=== PATIENT | male | born 1965 | race Caucasian/White ===

== ENCOUNTER 2018-06-26 21:53 | Emergency (ER) | payer OTHER, SELFPAY ==
[2018-06-26 22:03] VITALS: BP 142/81; PULSE 69; RESP 18; TEMP 36.1; O2SAT 98; BMI 38.4
--- NOTE | 2018-06-26 22:16 | PC.NURSE ---
Went back into pt's room after he changed into hospital gown. Pt stated that he is in fact having pain on right side of his chest. Called RT for EKG, Dr Clayton notified, primary RN Melissa made aware as well.
--- NOTE | 2018-06-26 22:30 | DI.RAD.S_ITS ---
PROCEDURE: XR CHEST 1V INDICATIONS: chest pain TECHNIQUE: One view of the chest was acquired. COMPARISON: [facility], CT, ABDOMEN/PELVIS WITH CONTRAST, 11/05/2017, 23:05. [facility], CT, CT ANGIO CHEST PE PROTOCOL, 06/27/2018, 0:43. FINDINGS: Surgical changes and devices: None. Lungs and pleura: On this semiupright portable chest examination, no large pneumothorax or large pleural effusions are seen. No focal infiltrates are seen. Mild, streaky opacities are seen at the lung bases. Mediastinum: Mediastinal contours appear normal. Heart size is normal. Bones and chest wall: No suspicious bony lesions. Overlying soft tissues appear unremarkable. IMPRESSION: Likely atelectasis is seen at the lung bases. Dictated by: Rohit Fletcher M.D. on 06/27/2018 at 10:40 Approved by: Rohit Fletcher M.D. on 06/27/2018 at 10:41
--- NOTE | 2018-06-26 22:43 | DI.US.S_ITS ---
PROCEDURE: US PERIPH VENOUS LOW EXTREM RT INDICATIONS: hx of DVT off xarelto 2 weeks TECHNIQUE: Real-time imaging, as well as color and pulse Doppler interrogation, were performed of the lower extremity deep veins from the inguinal ligament to the popliteal fossa. COMPARISON: [facility], US, PVE UNILATERAL LEFT, 05/30/2012, 20:03. [facility], CT, CT ANGIO CHEST PE PROTOCOL, 06/27/2018, 0:43. [facility], CR, XR CHEST 1V, 06/26/2018, 22:39. FINDINGS: The deep veins are normally compressible, and free of intraluminal thrombus. Color and pulse Doppler demonstrate normal phasic intraluminal flow. There is normal augmentation response to distal compression maneuver. IMPRESSION: Negative for deep venous thrombosis. Note: No significant discrepancy from the preliminary report. Note: Concordant preliminary findings given by the aircraft engine specialist upon the completion of the examination to Dr. Clayton at 2330 hrs. on 06/26/18. Dictated by: Rohit Fletcher M.D. on 06/27/2018 at 9:41 Approved by: Rohit Fletcher M.D. on 06/27/2018 at 9:42
[2018-06-26 22:44] LABS: Add Manual Diff / Slide Review NO; Basophils Percent Auto 0.8 % (0-2); Eosinophils Percent Auto 6.9 % (2-4); Hematocrit 42.7 % (41-53); Hemoglobin 14.6 g/dL (13.5-17.5); Lymphocytes Percent Auto 23.8 % (25-40); Mean Corpuscular HGB Conc 34.3 % (30-36); Mean Corpuscular Hemoglobin 32.6 PG (26-34); Monocytes Percent Auto 12.6 % (3-14); Neutrophils Absolute Auto 4500 /uL (3000-5900); Neutrophils Percent Auto 55.9 % (50-75); Platelet Count 262 X10^3/uL (150-400); Red Blood Cell Count 4.49 X10^6/uL (4.5-5.9); Red Cell Distribution Width 13.4 % (11.6-14.8)
[2018-06-26 22:46] LABS: Prothrombin Time 11.1 SECONDS (10.1-12.7)
[2018-06-26 22:49] LABS: PTT Partial Thromboplastin Tim 26 SECONDS (26.4-36.2)
[2018-06-26 22:50] LABS: Alanine Aminotransferase 36 IU/L (21-72); Albumin 4.1 g/dL (3.5-5.0); Albumin Globulin Ratio 1.4 (1.0-2.8); Alkaline Phosphatase 73 U/L (38-126); Aspartate Aminotransferase 28 IU/L (17-59); BUN Creatinine Ratio 11.1 (6-22); Bilirubin Total 0.4 mg/dL (0.2-1.3); Blood Urea Nitrogen 10 mg/dL (9-20); Calcium 8.8 mg/dL (8.4-10.2); Carbon Dioxide 27 mmol/L (22-32); Chloride 106 mmol/L (98-107); Creatine Kinase 121 U/L (55-170); Estimated Glomerular Filt Rate > 60.0 mL/min (>60); Globulin 2.9 g/dL (1.7-4.1); Glucose 112 mg/dL (70-100); HEMOLYSIS < 15 (0-50); Lipase 51 U/L (23-300); Sodium 144 mmol/L (137-145)
[2018-06-26 22:56] LABS: D Dimer 2063 ng/mL (<230)
[2018-06-26 23:06] LABS: CKMB % Relative Index 0.6 % (1.5-5.0); Creatine Kinase MB 0.76 ng/mL (<2.37)
[2018-06-26 23:07] LABS: Troponin I < 0.012 ng/mL (0.01-0.034)
[2018-06-26 23:11] LABS: B Type Natriuretic Peptide < 100.0 (<100)
--- NOTE | 2018-06-26 23:40 | PC.NURSE ---
Patient resting quietly. No further needs at this time. [place] provided to family member.
--- NOTE | 2018-06-26 23:42 | DI.CT.S_ITS ---
PROCEDURE: CT ANGIO CHEST PE PROTOCOL INDICATIONS: shortness of breath, history of PE, off xarelto 2 weeks TECHNIQUE: After the administration of intravenous contrast, 2 mm thick sections acquired from the pulmonary apices to the posterior costophrenic angles. 3-dimensional maximum intensity projection (MIP) coronal and sagittal reformats were then acquired through the thorax. For radiation dose reduction, the following was used: automated exposure control, adjustment of mA and/or kV according to patient size. COMPARISON: [facility], CT, ABDOMEN/PELVIS WITH CONTRAST, 11/05/2017, 23:05. [facility], CR, XR CHEST 1V, 06/26/2018, 22:39. [facility], US, US PERIPH VENOUS LOW EXTREM RT, 06/26/2018, 23:30. FINDINGS: Image quality: Excellent. Pulmonary arteries: There is a small amount of right lower lobe pulmonary embolism seen. A small amount of left lower lobe pulmonary embolism can also be seen, involving the subsegmental branches on the left. Lungs and pleura: Mild dependent atelectasis is seen. No pleural effusions or pneumothorax. Central and peripheral airways are patent. Mediastinum: Heart size is mildly enlarged, without pericardial effusion. No mediastinal or hilar adenopathy. Thoracic aorta is normal in caliber and enhancement. Esophagus is normal in caliber. There is a small hiatal hernia. Bones and chest wall: No suspicious bony lesions. Ribs and thoracic spine appear intact throughout. Thyroid gland demonstrates no significant CT abnormality. No axillary or supraclavicular adenopathy. Abdomen: Postoperative clips are seen within the region of the left adrenal gland. Visualized upper abdominal solid organs appear normal in the early arterial phase of enhancement. IMPRESSION: Bilateral lower lobe pulmonary emboli, with a mild clot burden. Mild cardiomegaly. Incidental note is made of: Small hiatal hernia Prior left adrenal region surgery Mild dependent atelectasis Note: No significant discrepancy from the preliminary report. Dictated by: Rohit Fletcher M.D. on 06/27/2018 at 9:43 Approved by: Rohit Fletcher M.D. on 06/27/2018 at 9:46
--- NOTE | 2018-06-26 23:49 | ED.EXTPRO ---
HPI - Extremity Problem General Chief complaint: Extremity Problem,Nontraumatic Stated complaint: RIGHT CALF PAIN Time Seen by Provider: 06/26/18 22:11 Source: patient Mode of arrival: ambulatory Limitations: no limitations History of Present Illness HPI Narrative: The patient is a 52-year-old male who presents with right calf pain ongoing for the last 4-5 days. He has a history of PE and was on Xarelto for a year. He has been off of it for 2 weeks so they could help identify the cause. He now is experiencing some right-sided chest pain which has been ongoing for about 3 days as well denies any heart palpitations dizziness or lightheadedness. He has no significant shortness of breath fever or cough. He said [place] CT [place]. Related Data Home Medications Medication Instructions Recorded Confirmed acetaminophen [Acephen] #0 11/05/17 Previous Rx's Medication Instructions Recorded hydrocodone-acetaminophen [Rye] 1 tab PO Q6HP PRN #10 tab 11/06/17 rivaroxaban [Xarelto] 15 mg PO BID #42 tab 06/27/18 tramadol 50 mg PO Q6H PRN #14 tab 06/27/18 Allergies Allergy/AdvReac Type Severity Reaction Status Date / Time No Known Drug Allergies Allergy Verified 06/26/18 22:42 Review of Systems Review of Systems All systems reviewed & are unremarkable except as noted in HPI and below Constitutional Denies chills, Denies fever(s), Denies lethargy and Denies weakness Cardiovascular Reports as per HPI and Denies dyspnea on exertion Respiratory Reports as per HPI, Denies cough, Denies dyspnea on exertion and Denies wheezing Gastrointestinal Gastrointestinal: Denies abdominal pain, Denies change in bowel habits, Denies diarrhea, Denies nausea and Denies vomiting Genitourinary Denies hematuria, Denies flank pain, Denies urinary incontinence and Denies urinary urgency Musculoskeletal Denies back pain, Denies muscle weakness, Denies numbness and Denies tingling Integumentary/Breasts Denies pruritus, Denies erythema, Denies rash and Denies wounds Neurologic Denies numbness, Denies tingling and Denies weakness Allergic/Immunologic Denies wheezing PFSH Medical History Pulmonary embolism (Acute) Exam Initial Vital Signs Initial Vital Signs: Vital Signs Temperature 97.0 F L 06/26/18 22:03 Pulse Rate 69 06/26/18 22:03 Respiratory Rate 18 06/26/18 22:03 Blood Pressure 142/81 H 06/26/18 22:03 Pulse Oximetry 98 06/26/18 22:03 GENERAL: Overweight male awake alert no acute distress HEENT: Head atraumatic,EOMI, pupils reactive, face symmetric, CARDIOVASCULAR: Regular rate and rhythm without murmurs, rubs or gallops. RESPIRATORY: Breath sounds equal bilaterally, no wheezes rales or rhonchi. ABDOMEN: Soft, nontender. Normoactive bowel sounds all 4 quadrants. No guarding or rebound.s EXTREMITIES: Normal range of motion, no clubbing or edema. Neurovascularly intact Right calf tenderness no but no significant swelling is no erythema. His NEUROLOGICAL: Alert and oriented x4.Normal gait and speech. Cranial nerves II through XII grossly intact. SKIN: Warm, dry, no laceration, no petechiae, no rashes or lesions. Course Orders Ordered: ED Orders 06/26/18 22:30 XR chest 1V Stat B Type Natriuretic Peptide Stat Complete Blood Count AUTO DIFF Stat Comprehensive Metabolic Panel Stat D Dimer Stat Lipase Stat Partial Thromboplastin Time Stat Prothrombin Time INR Stat Troponin & CK Cardiac Panel Stat 06/26/18 22:43 US periph venous low extrem rt Stat 06/26/18 23:42 CT angio chest PE protocol Stat Discontinued Medications Rivaroxaban (Xarelto) 15 mg PO NOW ONE Stop: 06/27/18 02:52 Last Admin: 06/27/18 03:10 Dose: 15 mg Tramadol HCl (Ultram 50mg Prepack) 1 bottle MISC SEEINSTR ONE Stop: 06/27/18 02:52 Last Admin: 06/27/18 03:10 Dose: 1 bottle Vital Signs - 8 hr 06/27/18 00:15 06/27/18 02:11 06/27/18 03:20 Temperature 98.2 F Pulse Rate 59 L 57 L 60 Respiratory Rate 12 12 19 Blood Pressure 106/76 Blood Pressure [Left Arm] 121/68 Blood Pressure [Right Arm] 114/54 L Pulse Oximetry 98 95 97 MDM - Extremity (Nontraumatic) Lab Data Result diagrams: 06/26/18 22:30 06/26/18 22:30 Lab Results 06/26/18 06/26/18 06/26/18 Range/Units 22:30 22:30 22:30 WBC 8.0 (4.5-11.0) X10^3/uL RBC 4.49 L (4.5-5.9) X10^6/uL Hgb 14.6 (13.5-17.5) g/dL Hct 42.7 (41-53) % MCV 95.0 (80-100) fL MCH 32.6 (26-34) PG MCHC 34.3 (30-36) % RDW 13.4 (11.6-14.8) % Plt Count 262 (150-400) X10^3/uL Neut % (Auto) 55.9 (50-75) % Lymph % (Auto) 23.8 L (25-40) % [place] % (Auto) 12.6 (3-14) % Eos % (Auto) 6.9 H (2-4) % Baso % (Auto) 0.8 (0-2) % Neut # (Auto) 4500 (2419-8906) /uL PT 11.1 (10.1-12.7) SECONDS INR 1.0 (0.9-1.3) APTT 26 L (26.4-36.2) SECONDS D-Dimer 2063 H (<230) ng/mL Sodium 144 (137-145) mmol/L Potassium 4.0 (3.4-5.1) mmol/L Chloride 106 (98-107) mmol/L Carbon Dioxide 27 (22-32) mmol/L BUN 10 (9-20) mg/dL Creatinine 0.90 (0.66-1.25) mg/dL Estimated GFR > 60.0 (>60) mL/min BUN/Creatinine Ratio 11.1 (6-22) Glucose 112 H (70-100) mg/dL Calcium 8.8 (8.4-10.2) mg/dL Total Bilirubin 0.4 (0.2-1.3) mg/dL AST 28 (17-59) IU/L ALT 36 (21-72) IU/L Alkaline Phosphatase 73 (38-126) U/L Total Creatine Kinase 121 (55-170) U/L CK-MB (CK-2) 0.76 (<2.37) ng/mL CK-MB (CK-2) Rel Index 0.6 L (1.5-5.0) % Troponin I < 0.012 (0.01-0.034) ng/mL B-Natriuretic Peptide < 100.0 (<100) Total Protein 7.0 (6.3-8.2) g/dL Albumin 4.1 (3.5-5.0) g/dL Globulin 2.9 (1.7-4.1) g/dL Albumin/Globulin Ratio 1.4 (1.0-2.8) Lipase 51 (23-300) U/L Imaging Data Venous US: Radiologist's impression: 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 No central pulmonary embolus is identified. No saddle embolus. There are luminal filling defects in peripheral branches of the medial left low pulmonary artery axial images [id number]. Conclusion I would estimate clot burden to be mild. ECG Data Attestation EKG: I personally reviewed and interpreted this ECG as follows: Prior ECG tracings: not available for review Interpretation: Normal sinus rhythm rate 64 no Q-waves no ST changes no T-wave inversion FL interval 187, QRS 96, QTC 390 MDM Narrative Medical decision making narrative: Ultrasound negative for blood clot however D-dimer is extremely elevated and he is having right-sided chest discomfort. Will get CT for PE. CT confirms bilateral pulmonary emboli with mild clot burden. PESI Score=62 Patient is not hypoxic hypotensive or tachycardic. He likely has an underlying clotting disorder. He has a relative 0 at home insurance has covered it previously. His we discussed admission versus going home. This is likely been ongoing for at least 3-5 days. No evidence of right heart failure or ventricular strain. Discussed at length admission versus discharge. This does seem to be mild clot burden is deemed mild per Radiology. He does have follow-up with his primary physicians on July 06 however I strongly recommended he get in much sooner than that. Discussed risk and benefits and options in anticoagulation including Coumadin Lovenox Xarelto and others.. At this time he would like to stick with Xarelto. Aware that there is no reversal. Also made aware that pulmonary embolisms can lead to though his dose not show signs or symptoms of that. I suspect that this pulmonary embolism has been there for at least a couple of days and is stable. Patient previously had pulmonary embolism treated with Xarelto which was covered by insurance. Strongly encouraged that if any symptoms are worsening return to the emergency department immediately I discussed all findings with the patient and spouse, Education has been performed regarding treatment plan, diagnosis, warning signs and symptoms and all concerns have been addressed. Verbally agree with and understood all of the above. Discharge Plan Departure Patient Disposition: Home Clinical Impression: Acute pulmonary embolism Discharge Date/Time: 06/27/18 03:20 Interventions: ED Discharge Assessment Last Done: 06/27/18 03:20 Instructions: Pulmonary Embolism Activity Restrictions/Additional Instructions: you must call your primary care physician Friday to schedule appointment as soon as possible -will likely be on Xarelto for the rest of your life -you have increased risk of bleeding while taking this medication, there is no reversal for it -Xarelto 15 mg twice a day for 21 days then 20 mg is once a day-please see her primary care about this -return to the emergency department as soon as possible if you should have any worsening chest pain, shortness of breath, dizziness lightheadedness or any other concerning symptoms. -tramadol 1-2 tablets every 6 hr if needed for severe pain Prescriptions: New rivaroxaban [Xarelto] 15 mg tablet 15 mg PO BID Qty: 42 RF: 0 tramadol 50 mg tablet 50 mg PO Q6H PRN (Reason: pain) Qty: 14 RF: 0 No Action acetaminophen [Acephen] 325 MG suppository Qty: 0 RF: 0 hydrocodone-acetaminophen [Rye] 5 MG/325 MG tablet 1 tab PO Q6HP PRNQty: 10 RF: 0 Referrals: [facility] [Provider Group] Provider,Conversion [Non-Staff] -
--- NOTE | 2018-06-26 23:52 | ED_ITS ---
HPI - Extremity Problem General Chief complaint: Extremity Problem,Nontraumatic Stated complaint: RIGHT CALF PAIN Time Seen by Provider: 06/26/18 22:11 Source: patient Mode of arrival: ambulatory Limitations: no limitations History of Present Illness HPI Narrative: The patient is a 52-year-old male who presents with right calf pain ongoing for the last 4-5 days. He has a history of PE and was on Xarelto for a year. He has been off of it for 2 weeks so they could help identify the cause. He now is experiencing some right-sided chest pain which has been ongoing for about 3 days as well denies any heart palpitations dizziness or lightheadedness. He has no significant shortness of breath fever or cough. He said he [place] the CT [place] said [place]. Related Data Home Medications Medication Instructions Recorded Confirmed acetaminophen [Acephen] #0 11/05/17 Previous Rx's Medication Instructions Recorded hydrocodone-acetaminophen [Mulberry] 1 tab PO Q6HP PRN #10 tab 11/06/17 rivaroxaban [Xarelto] 15 mg PO BID #42 tab 06/27/18 tramadol 50 mg PO Q6H PRN #14 tab 06/27/18 Allergies Allergy/AdvReac Type Severity Reaction Status Date / Time No Known Drug Allergies Allergy Verified 06/26/18 22:42 Review of Systems Review of Systems All systems reviewed & are unremarkable except as noted in HPI and below Constitutional Denies chills, Denies fever(s), Denies lethargy and Denies weakness Cardiovascular Reports as per HPI and Denies dyspnea on exertion Respiratory Reports as per HPI, Denies cough, Denies dyspnea on exertion and Denies wheezing Gastrointestinal Gastrointestinal: Denies abdominal pain, Denies change in bowel habits, Denies diarrhea, Denies nausea and Denies vomiting Genitourinary Denies hematuria, Denies flank pain, Denies urinary incontinence and Denies urinary urgency Musculoskeletal Denies back pain, Denies muscle weakness, Denies numbness and Denies tingling Integumentary/Breasts Denies pruritus, Denies erythema, Denies rash and Denies wounds Neurologic Denies numbness, Denies tingling and Denies weakness Allergic/Immunologic Denies wheezing PFSH Medical History Pulmonary embolism (Acute) Exam Initial Vital Signs Initial Vital Signs: Vital Signs Temperature 97.0 F L 06/26/18 22:03 Pulse Rate 69 06/26/18 22:03 Respiratory Rate 18 06/26/18 22:03 Blood Pressure 142/81 H 06/26/18 22:03 Pulse Oximetry 98 06/26/18 22:03 GENERAL: Overweight male awake alert no acute distress HEENT: Head atraumatic,EOMI, pupils reactive, face symmetric, CARDIOVASCULAR: Regular rate and rhythm without murmurs, rubs or gallops. RESPIRATORY: Breath sounds equal bilaterally, no wheezes rales or rhonchi. ABDOMEN: Soft, nontender. Normoactive bowel sounds all 4 quadrants. No guarding or rebound.s EXTREMITIES: Normal range of motion, no clubbing or edema. Neurovascularly intact Right calf tenderness no but no significant swelling is no erythema. His NEUROLOGICAL: Alert and oriented x4.Normal gait and speech. Cranial nerves II through XII grossly intact. SKIN: Warm, dry, no laceration, no petechiae, no rashes or lesions. Course Orders Ordered: ED Orders 06/26/18 22:30 XR chest 1V Stat B Type Natriuretic Peptide Stat Complete Blood Count AUTO DIFF Stat Comprehensive Metabolic Panel Stat D Dimer Stat Lipase Stat Partial Thromboplastin Time Stat Prothrombin Time INR Stat Troponin & CK Cardiac Panel Stat 06/26/18 22:43 US periph venous low extrem rt Stat 06/26/18 23:42 CT angio chest PE protocol Stat Discontinued Medications Rivaroxaban (Xarelto) 15 mg PO NOW ONE Stop: 06/27/18 02:52 Last Admin: 06/27/18 03:10 Dose: 15 mg Tramadol HCl (Ultram 50mg Prepack) 1 bottle MISC SEEINSTR ONE Stop: 06/27/18 02:52 Last Admin: 06/27/18 03:10 Dose: 1 bottle Vital Signs - 8 hr 06/27/18 00:15 06/27/18 02:11 06/27/18 03:20 Temperature 98.2 F Pulse Rate 59 L 57 L 60 Respiratory Rate 12 12 19 Blood Pressure 106/76 Blood Pressure [Left Arm] 121/68 Blood Pressure [Right Arm] 114/54 L Pulse Oximetry 98 95 97 MDM - Extremity (Nontraumatic) Lab Data Result diagrams: 06/26/18 22:30 06/26/18 22:30 Lab Results 06/26/18 06/26/18 06/26/18 Range/Units 22:30 22:30 22:30 WBC 8.0 (4.5-11.0) X10^3/uL RBC 4.49 L (4.5-5.9) X10^6/uL Hgb 14.6 (13.5-17.5) g/dL Hct 42.7 (41-53) % MCV 95.0 (80-100) fL MCH 32.6 (26-34) PG MCHC 34.3 (30-36) % RDW 13.4 (11.6-14.8) % Plt Count 262 (150-400) X10^3/uL Neut % (Auto) 55.9 (50-75) % Lymph % (Auto) 23.8 L (25-40) % [place] % (Auto) 12.6 (3-14) % Eos % (Auto) 6.9 H (2-4) % Baso % (Auto) 0.8 (0-2) % Neut # (Auto) 4500 (1473-3538) /uL PT 11.1 (10.1-12.7) SECONDS INR 1.0 (0.9-1.3) APTT 26 L (26.4-36.2) SECONDS D-Dimer 2063 H (<230) ng/mL Sodium 144 (137-145) mmol/L Potassium 4.0 (3.4-5.1) mmol/L Chloride 106 (98-107) mmol/L Carbon Dioxide 27 (22-32) mmol/L BUN 10 (9-20) mg/dL Creatinine 0.90 (0.66-1.25) mg/dL Estimated GFR > 60.0 (>60) mL/min BUN/Creatinine Ratio 11.1 (6-22) Glucose 112 H (70-100) mg/dL Calcium 8.8 (8.4-10.2) mg/dL Total Bilirubin 0.4 (0.2-1.3) mg/dL AST 28 (17-59) IU/L ALT 36 (21-72) IU/L Alkaline Phosphatase 73 (38-126) U/L Total Creatine Kinase 121 (55-170) U/L CK-MB (CK-2) 0.76 (<2.37) ng/mL CK-MB (CK-2) Rel Index 0.6 L (1.5-5.0) % Troponin I < 0.012 (0.01-0.034) ng/mL B-Natriuretic Peptide < 100.0 (<100) Total Protein 7.0 (6.3-8.2) g/dL Albumin 4.1 (3.5-5.0) g/dL Globulin 2.9 (1.7-4.1) g/dL Albumin/Globulin Ratio 1.4 (1.0-2.8) Lipase 51 (23-300) U/L Imaging Data Venous US: 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 No central pulmonary embolus is identified. No saddle embolus. There are luminal filling defects in peripheral branches of the medial left low pulmonary artery axial images [id number]. Conclusion I would estimate clot burden to be mild. ECG Data Attestation EKG: I personally reviewed and interpreted this ECG as follows: Prior ECG tracings: not available for review Interpretation: Normal sinus rhythm rate 64 no Q-waves no ST changes no T-wave inversion AR interval 187, QRS 96, QTC 390 MDM Narrative Medical decision making narrative: Ultrasound negative for blood clot however D- dimer is extremely elevated and he is having right-sided chest discomfort. Will get CT for PE. CT confirms bilateral pulmonary emboli with mild clot burden. PESI Score=62 Patient is not hypoxic hypotensive or tachycardic. He likely has an underlying clotting disorder. He has a relative 0 at home insurance has covered it previously. His we discussed admission versus going home. This is likely been ongoing for at least 3-5 days. No evidence of right heart failure or ventricular strain. Discussed at length admission versus discharge. This does seem to be mild clot burden is deemed mild per Radiology. He does have follow-up with his primary physicians on July 06 however I strongly recommended he get in much sooner than that. Discussed risk and benefits and options in anticoagulation including Coumadin Lovenox Xarelto and others.. At this time he would like to stick with Xarelto. Aware that there is no reversal. Also made aware that pulmonary embolisms can lead to though his dose not show signs or symptoms of that. I suspect that this pulmonary embolism has been there for at least a couple of days and is stable. Patient previously had pulmonary embolism treated with Xarelto which was covered by insurance. Strongly encouraged that if any symptoms are worsening return to the emergency department immediately I discussed all findings with the patient and spouse, Education has been performed regarding treatment plan, diagnosis, warning signs and symptoms and all concerns have been addressed. Verbally agree with and understood all of the above. Discharge Plan Departure Patient Disposition: Home Clinical Impression: Acute pulmonary embolism Discharge Date/Time: 06/27/18 03:20 Interventions: ED Discharge Assessment Last Done: 06/27/18 03:20 Instructions: Pulmonary Embolism Activity Restrictions/Additional Instructions: you must call your primary care physician Friday to schedule appointment as soon as possible -will likely be on Xarelto for the rest of your life -you have increased risk of bleeding while taking this medication, there is no reversal for it -Xarelto 15 mg twice a day for 21 days then 20 mg is once a day-please see her primary care about this -return to the emergency department as soon as possible if you should have any worsening chest pain, shortness of breath, dizziness lightheadedness or any other concerning symptoms. -tramadol 1-2 tablets every 6 hr if needed for severe pain Prescriptions: New rivaroxaban [Xarelto] 15 mg tablet 15 mg PO BID Qty: 42 RF: 0 tramadol 50 mg tablet 50 mg PO Q6H PRN (Reason: pain) Qty: 14 RF: 0 No Action acetaminophen [Acephen] 325 MG suppository Qty: 0 RF: 0 hydrocodone-acetaminophen [Mulberry] 5 MG/325 MG tablet 1 tab PO Q6HP PRNQty: 10 RF: 0 Referrals: [facility] [Provider Group] Provider,Conversion [Non-Staff] -
[2018-06-27 00:15] VITALS: BP 114/54; PULSE 59; RESP 12; O2SAT 98
[2018-06-27 02:11] VITALS: BP 121/68; PULSE 57; RESP 12; O2SAT 95
[2018-06-27] MEDS: RIVAROXABAN 10 MG TABLET 15 MG PO (03:10)
[2018-06-27] MEDS: TRAMADOL 50 MG PREPACK 1 BOTTLE MISC (03:10)
[2018-06-27 03:20] VITALS: BP 106/76; PULSE 60; RESP 19; TEMP 36.8; O2SAT 97
== END 2018-06-27 03:20 | disposition home or self-care (01) ==
PROVIDERS: Emergency Provider Emergency Medicine
DX: I26.99 Other pulmonary embolism without acute cor pulmonale (principal)
CPT/HCPCS: 36415; 36591; 71045; 71275; 80053; 82550; 82553; 83690; 83880; 84484; 85025; 85379; 85610; 85730; 93005; 93971; 99283; 99285; Q9967

== ENCOUNTER 2020-01-03 09:36 | Emergency (ER) | payer OTHER, SELFPAY ==
[2020-01-03 09:42] VITALS: BP 156/79; PULSE 65; RESP 12; TEMP 36.8; O2SAT 96
--- NOTE | 2020-01-03 09:48 | ED_ITS ---
HPI - Extremity Problem General Chief complaint: Extremity Problem,Nontraumatic Stated complaint: Infection on left elkins Time Seen by Provider: 01/03/20 09:42 Source: patient Mode of arrival: Ambulatory Limitations: no limitations History of Present Illness HPI Narrative: 54-year-old gentleman with a history of prior DVT, PE and lifelong Xarelto use presents with increasing redness pain and swelling to the left lower extremity. He had an acute injury on December 21, hit his elkins on the edge of the truck. He did not think much about it but did continued to hurt. There is a 2 cm abrasion mid elkins. Over the last 48 hours it is hurting worse, increasing erythema and he is noticing pain that radiates from the medial portion of his knee down to the medial portion of his ankle including the posterior calf on the affected side. He states that this does feel different than his DVTs but he is concerned. Related Data Home Medications Medication Instructions Recorded Confirmed acetaminophen [Acephen] #0 11/05/17 Previous Rx's Medication Instructions Recorded hydrocodone-acetaminophen [[place]] 1 tab PO Q6HP PRN #10 tab 11/06/17 rivaroxaban [Xarelto] 15 mg PO BID #42 tab 06/27/18 tramadol 50 mg PO Q6H PRN #14 tab 06/27/18 cephalexin [Keflex] 500 mg PO Q8H #21 cap 01/03/20 Allergies Allergy/AdvReac Type Severity Reaction Status Date / Time No Known Drug Allergies Allergy Verified 01/03/20 09:46 Review of Systems Review of Systems Narrative: Denies ? fever ? cough ? cold ? chills ? chest pain ? dyspnea ? orthopnea ? wheezing ? abdominal pain ? change to bowel or bladder habits ? nausea vomiting ? rashes Patient History Medical History Pulmonary embolism (Acute) Social History Smoking Status: Former smoker Smoking Status: Former smoker alcohol intake frequency: 0-2 drinks per day Substance Use Type: does not use Exam Narrative Exam Narrative: General: Healthy appearing, in no acute distress. Able to give a complete and coherent history. Well-nourished well-developed Respiratory: Lungs are clear to auscultation, no wheezing no rales no rhonchi. Full and symmetrical air movement Cardiac: Regular rate and rhythm no murmurs no bruits Abdomen: Soft nontender good bowel tones, no flank pain Neurologic: Grossly neurologically intact with no obvious asymmetries or abnormalities Psych: Cooperative, appropriate insight and affect Extremities: 2 cm healing abrasion to the mid elkins on the left calf. Left calf is 1+ edematous with no similar edema on the right calf. There is increasing erythema for approximately 3 cm surrounding the abrasion without any abscess. He has no inguinal adenopathy. Initial Vital Signs Initial Vital Signs: Vital Signs Temperature 98.3 F 01/03/20 09:42 Pulse Rate 65 01/03/20 09:42 Respiratory Rate 12 01/03/20 09:42 Blood Pressure 156/79 H 01/03/20 09:42 Pulse Oximetry 96 01/03/20 09:42 Course Orders Ordered: ED Orders 01/03/20 09:51 US periph venous low extrem lt Stat Vital Signs Vital signs: Vital Signs - 8 hr 01/03/20 09:42 Temperature 98.3 F Pulse Rate 65 Respiratory Rate 12 Blood Pressure 156/79 H Pulse Oximetry 96 MDM - Extremity (Nontraumatic) Imaging Data Left lower extremity ultrasound: Radiologist's Impression: Per environmental tech, no evidence of DVT MDM Narrative Medical decision making narrative: Lower extremity wound that has now become infected with developing left lower extremity cellulitis without evidence of DVT. Treat with Keflex. He is safe for home discharge Discharge Plan Departure Patient Disposition: Home Clinical Impression: Cellulitis Qualifiers: Site of cellulitis: extremity Site of cellulitis of extremity: lower extremity Laterality: left Qualified Code(s): L03.116 - Cellulitis of left lower limb Instructions: DI for Cellulitis -- Adult Activity Restrictions/Additional Instructions: Thank you for coming in today I do believe that the abrasion you have on your left elkins is developing into an infection, cellulitis. There is no evidence for a blood clot at this time. Please complete the entire course of Keflex. Please continue your Xarelto as prescribed. You may find a keeping your leg elevated does help with pain as the infection improves. If you note that there is increasing redness, any drainage, streaking up your leg to suggest worsening infection or develop fevers you do need to be re- evaluated. I hope you heal quickly and completely. Prescriptions: New cephalexin [Keflex] 500 mg capsule 500 mg PO Q8H Qty: 21 RF: 0 No Action acetaminophen [Acephen] 325 MG suppository Qty: 0 RF: 0 hydrocodone-acetaminophen [[place]] 5 MG/325 MG tablet 1 tab PO Q6HP PRNQty: 10 RF: 0 rivaroxaban [Xarelto] 15 mg tablet 15 mg PO BID Qty: 42 RF: 0 tramadol 50 mg tablet 50 mg PO Q6H PRN (Reason: pain) Qty: 14 RF: 0
--- NOTE | 2020-01-03 09:51 | DI.US.S_ITS ---
PROCEDURE: US PERIPH VENOUS LOW EXTREM LT INDICATIONS: unilateral edema, h/o DVT/PE TECHNIQUE: Real-time imaging, as well as color and pulse Doppler interrogation, were performed of the lower extremity deep veins from the inguinal ligament to the popliteal fossa. COMPARISON: None. FINDINGS: The common femoral, femoral and popliteal veins are normally compressible, and free of intraluminal thrombus. Color and pulse Doppler demonstrate normal phasic intraluminal flow. There is normal augmentation response to distal compression maneuver. IMPRESSION: Negative for deep venous thrombosis. Dictated by: Rohit Fletcher M.D. on 01/03/2020 at 9:51 Approved by: Rohit Fletcher M.D. on 01/03/2020 at 9:52
== END 2020-01-03 11:00 | disposition home or self-care (01) ==
PROVIDERS: Emergency Provider Emergency Medicine; PCP Family Medicine
DX: L03.116 Cellulitis of left lower limb (principal); Y99.0 Civilian activity done for income or pay
CPT/HCPCS: 93971; 99283

== ENCOUNTER 2024-11-15 10:39 | Emergency (ER) | payer OTHER, SELFPAY ==
[2024-11-15 11:04] VITALS: BP 156/74; PULSE 57; RESP 18; TEMP 37; O2SAT 98; BMI 33.3
--- NOTE | 2024-11-15 11:12 | DI.RAD.S_ITS ---
PROCEDURE: XR RIBS RT MIN 3V W CXR 1V INDICATIONS: fall; injury to right ribs TECHNIQUE: 3 views of the ribs were acquired, along with a single view chest. COMPARISON: None. FINDINGS: Surgical changes and devices: None. Bones and chest wall: No fractures or dislocations. No suspicious bony lesions. Overlying soft tissues appear unremarkable. Lungs and pleura: No pleural effusions or pneumothorax. Lungs appear clear. Mediastinum: Mediastinal contours appear normal. Heart size is normal. IMPRESSION: No visualized acute fracture or dislocation. However, if clinical concern and/or pain persist, short interval imaging followup in 7-10 days is recommended, as occult injury cannot be definitively excluded. Dictated by: Tana Jolley M.D. on 11/15/2024 at 11:48 Approved by: Tana Jolley M.D. on 11/15/2024 at 11:48
[2024-11-15 12:46] VITALS: RESP 20
--- NOTE | 2024-11-15 13:10 | ED.FALL ---
HPI - Fall <Brendan Salinas PA-C - Last Filed: 11/15/24 15:18> General Chief Complaint: Fall Stated Complaint: fell from ladder, rib pain, work injury Time Seen by Provider: 11/15/24 12:13 Source: patient Mode of arrival: Ambulatory History of Present Illness HPI Narrative: 59-year-old male with past medical history diabetes, kidney/adrenal cyst, pulmonary embolism presents to the ED with 3 days of right-sided lower rib pain. 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 Patient also bumped his right elbow, however the elbow soreness seems to have resolved. Patient complains of right-sided rib pain. No pain with inspiration, patient is able to take a full breath without pain. Patient is on Xarelto. Related Data Home Medications Medication Instructions Recorded Confirmed acetaminophen 325 mg rectal ##0 11/05/17 suppository (Acephen) Previous Rx's Medication Instructions Recorded hydrocodone 5 mg-acetaminophen 325 1 tab PO Q6HP PRN #10 tabs 11/06/17 mg tablet ([place]) rivaroxaban 15 mg tablet (Xarelto) 15 mg PO BID #42 tabs 06/27/18 tramadol 50 mg tablet 50 mg PO Q6H PRN pain #14 tabs 06/27/18 cephalexin 500 mg capsule (Keflex) 500 mg PO Q8H #21 caps 01/03/20 Allergies Allergy/AdvReac Type Severity Reaction Status Date / Time No Known Drug Allergies Allergy Verified 01/03/20 09:46 Review of Systems <Brendan Salinas PA-C - Last Filed: 11/15/24 15:18> Constitutional Constitutional: Denies chills, Denies fatigue, Denies fever(s), Denies frequent falls, Denies lethargy and Denies weakness Eyes Eyes: Denies change in vision, Denies eye discharge, Denies irritation and Denies loss of vision ENT Ears, Nose, Mouth, and Throat: Denies change in voice, Denies dizziness, Denies neck pain, Denies sore throat and Denies throat swelling Cardiovascular Cardiovascular: Denies chest pain, Denies irregular heart rhythm, Denies lightheadedness, Denies palpitations, Denies dyspnea, Denies dyspnea on exertion and Denies orthopnea Respiratory Respiratory: Denies cough, Denies dyspnea, Denies dyspnea on exertion and Denies wheezing Gastrointestinal Gastrointestinal: Denies abdominal pain, Denies change in bowel habits, Denies diarrhea, Denies nausea and Denies vomiting Musculoskeletal Musculoskeletal: Denies neck pain and Denies numbness Comments: Right-sided lower rib pain Integumentary/Breasts Skin/Breast: Denies pruritus, Denies erythema, Denies rash and Denies wounds Neurologic Neurologic: Denies behavioral changes, Denies confusion, Denies dizziness, Denies frequent falls, Denies loss of vision, Denies numbness and Denies weakness Psychiatric Psychiatric: Denies anxiety, Denies behavioral changes, Denies confusion, Denies depression, Denies homicidal ideation and Denies suicidal ideation Endocrine Endocrine: Denies fatigue, Denies flushing and Denies palpitations Hematologic/Lymphatic Hematologic/Lymphatic: Denies easy bruising Allergic/Immunologic Allergic/Immunologic: Denies urticaria, Denies throat swelling and Denies wheezing Patient History <Brendan Salinas PA-C - Last Filed: 11/15/24 15:18> Medical History (Updated 11/15/24 @ 15:05 by Brendan Salinas PA-C) Pulmonary embolism Social History Smoking Status: Former smoker Smoking Status: Former smoker alcohol intake frequency: 0-2 drinks per day Exam <Brendan Salinas PA-C - Last Filed: 11/15/24 15:18> Narrative Exam Narrative: Const General:?cooperative, healthy appearing and comfortable [facility] Head:?normal to inspection Ears:?hearing grossly normal bilaterally Nose:?external nose normal Face and sinus:?normal facial exam and sinuses nontender Mouth:?oral mucosae normal Throat:?posterior oropharynx normal Eyes General:?appearance normal, both eyes and all related structures Neck Neck:?normal visual inspection and no lymphadenopathy noted Resp Effort & Inspection:?normal respiratory effort Auscultation:?clear to auscultation bilaterally Cardio Rate:?regular rate Rhythm:?regular rhythm GI/Musculoskeletal Significant tenderness in the right lower ribs, RUQ. Neuro General:?patient alert, patient awake and patient oriented x3 Initial Vital Signs Initial Vital Signs: Vital Signs Temperature 98.6 F 11/15/24 11:04 Pulse Rate 57 L 11/15/24 11:04 Respiratory Rate 18 11/15/24 11:04 Blood Pressure 156/74 H 11/15/24 11:04 Pulse Oximetry 98 11/15/24 11:04 Oxygen Delivery Method Room Air 11/15/24 11:04 <Cuauhtemoc Fong MD - Last Filed: 11/15/24 22:03> Initial Vital Signs Initial Vital Signs: Vital Signs Temperature 98.6 F 11/15/24 11:04 Pulse Rate 57 L 11/15/24 11:04 Respiratory Rate 18 11/15/24 11:04 Blood Pressure 156/74 H 11/15/24 11:04 Pulse Oximetry 98 11/15/24 11:04 Oxygen Delivery Method Room Air 11/15/24 11:04 Course <Brendan Salinas PA-C - Last Filed: 11/15/24 15:18> Orders Ordered: ED Orders 11/15/24 13:16 CT chest abd pel w con Stat 11/15/24 13:25 CBC Auto Diff [Complete Blood Count AUTO DIFF] Stat CMP [Comprehensive Metabolic Panel] Stat Lipase Stat PT [Prothrombin Time INR] Stat PTT Partial Thromboplastin Carlos Stat Vital Signs Vital signs: Vital Signs - 8 hr 11/15/24 15:20 Pulse Rate 54 L Respiratory Rate 16 Blood Pressure 128/77 Pulse Oximetry 97 Oxygen Delivery Method Room Air <Cuauhtemoc Fong MD - Last Filed: 11/15/24 22:03> Orders Ordered: ED Orders 11/15/24 13:16 CT chest abd pel w con Stat 11/15/24 13:25 CBC Auto Diff [Complete Blood Count AUTO DIFF] Stat CMP [Comprehensive Metabolic Panel] Stat Lipase Stat PT [Prothrombin Time INR] Stat PTT Partial Thromboplastin Carlos Stat Vital Signs Vital signs: Vital Signs - 8 hr 11/15/24 15:20 Pulse Rate 54 L Respiratory Rate 16 Blood Pressure 128/77 Pulse Oximetry 97 Oxygen Delivery Method Room Air MDM - Fall <Brendan Salinas PA-C - Last Filed: 11/15/24 15:18> Lab Data 11/15/24 13:25 11/15/24 13:25 Labs: Lab Results 11/15/24 Range/Units 13:25 WBC 6.4 (4.5-11.0) X10^3/uL RBC 4.84 (4.5-5.9) X10^6/uL Hgb 15.7 (13.5-17.5) g/dL Hct 46.5 (41-53) % MCV 96.0 (80-100) fL MCH 32.5 (26-34) PG MCHC 33.8 (30-36) % RDW 12.9 (11.6-14.8) % Plt Count 293 (150-400) X10^3/uL Neut % (Auto) 67.1 (50-75) % Lymph % (Auto) 22.3 L (25-40) % [place] % (Auto) 7.4 (3-14) % Eos % (Auto) 2.7 (2-4) % Baso % (Auto) 0.5 (0-2) % Neut # (Auto) 4300 (2173-7564) /uL Lymph # (Auto) 1400 (7093-0317) /uL [place] # (Auto) 500 (0-900) /uL Eos # (Auto) 200 (0-450) /uL Baso # (Auto) 0 (0-100) /uL PT 11.1 (9.4-12.5) SECONDS INR 1.0 (0.9-1.3) APTT 37 H (25.1-36.5) SECONDS Sodium 135 L (137-145) mmol/L Potassium 4.2 (3.4-5.1) mmol/L Chloride 103 (98-107) mmol/L Carbon Dioxide 24 (22-32) mmol/L BUN 10 (9-20) mg/dL Creatinine 0.75 (0.66-1.25) mg/dL Estimated GFR > 60 (>60) mL/min BUN/Creatinine Ratio 13.3 (6-22) Glucose 301 H (70-100) mg/dL Calcium 9.1 (8.4-10.2) mg/dL Total Bilirubin 0.5 (0.2-1.3) mg/dL AST 32 (17-59) IU/L ALT 35 (<50) IU/L Alkaline Phosphatase 78 (38-126) U/L Total Protein 7.9 (6.3-8.2) g/dL Albumin 4.7 (3.5-5.0) g/dL Globulin 3.2 (1.7-4.1) g/dL Albumin/Globulin Ratio 1.5 (1.0-2.8) Lipase 58 (23-300) U/L MDM Narrative Medical decision making narrative: 59-year-old male with past medical history diabetes, kidney/adrenal cyst, pulmonary embolism presents to the ED with 3 days of right-sided lower rib pain. Concern for rib fracture versus intra-abdominal hemorrhage versus musculoskeletal sprain/strain versus other. Rib x-ray negative. Given that patient is on Xarelto, will obtain labs and CT chest abdomen pelvis. Will reassess. CT chest abdomen pelvis without acute findings might be causing patient's symptoms. Incidental finding of nonobstructive nephrolithiasis. Patient's symptoms likely due to a rib contusion. Glucose elevated to 301, labs otherwise within normal limits. Patient is known diabetic on medications. Recommend good glycemic control. Recommend Tylenol, lidocaine patches. Recommend follow-up with PCP. ED return precautions discussed with patient. Patient verbalized understanding. Medical records reviewed: Yes <Cuauhtemoc Fong MD - Last Filed: 11/15/24 22:03> Lab Data Labs: Lab Results 11/15/24 Range/Units 13:25 WBC 6.4 (4.5-11.0) X10^3/uL RBC 4.84 (4.5-5.9) X10^6/uL Hgb 15.7 (13.5-17.5) g/dL Hct 46.5 (41-53) % MCV 96.0 (80-100) fL MCH 32.5 (26-34) PG MCHC 33.8 (30-36) % RDW 12.9 (11.6-14.8) % Plt Count 293 (150-400) X10^3/uL Neut % (Auto) 67.1 (50-75) % Lymph % (Auto) 22.3 L (25-40) % [place] % (Auto) 7.4 (3-14) % Eos % (Auto) 2.7 (2-4) % Baso % (Auto) 0.5 (0-2) % Neut # (Auto) 4300 (8837-0831) /uL Lymph # (Auto) 1400 (7531-7392) /uL [place] # (Auto) 500 (0-900) /uL Eos # (Auto) 200 (0-450) /uL Baso # (Auto) 0 (0-100) /uL PT 11.1 (9.4-12.5) SECONDS INR 1.0 (0.9-1.3) APTT 37 H (25.1-36.5) SECONDS Sodium 135 L (137-145) mmol/L Potassium 4.2 (3.4-5.1) mmol/L Chloride 103 (98-107) mmol/L Carbon Dioxide 24 (22-32) mmol/L BUN 10 (9-20) mg/dL Creatinine 0.75 (0.66-1.25) mg/dL Estimated GFR > 60 (>60) mL/min BUN/Creatinine Ratio 13.3 (6-22) Glucose 301 H (70-100) mg/dL Calcium 9.1 (8.4-10.2) mg/dL Total Bilirubin 0.5 (0.2-1.3) mg/dL AST 32 (17-59) IU/L ALT 35 (<50) IU/L Alkaline Phosphatase 78 (38-126) U/L Total Protein 7.9 (6.3-8.2) g/dL Albumin 4.7 (3.5-5.0) g/dL Globulin 3.2 (1.7-4.1) g/dL Albumin/Globulin Ratio 1.5 (1.0-2.8) Lipase 58 (23-300) U/L Discharge Plan Departure Patient Disposition: Home Clinical Impression: Rib injury Instructions: DI for Rib Contusion Activity Restrictions/Additional Instructions: You were evaluated in the ED today for right-sided rib pain. Your CT scan shows no acute injuries or rib fractures. It appears that your symptoms are likely due to a rib contusion/bruise. You may continue taking Tylenol, applying lidocaine patches for relief. Your CT scan also showed some kidney stones as an incidental finding, however not responsible for your symptoms today. Please follow-up with your PCP as soon as possible. Return to the ED if you have worsening symptoms, chest pain, shortness of breath Prescriptions: No Action acetaminophen [Acephen] 325 MG suppository Qty: 0 hydrocodone-acetaminophen [[place]] 5 MG/325 MG tablet 1 tab PO Q6HP PRNQty: 10 0RF rivaroxaban [Xarelto] 15 mg tablet 15 mg PO BID Qty: 42 0RF Rx Instructions: for 21 days tramadol 50 mg tablet 50 mg PO Q6H PRN (Reason: pain) Qty: 14 0RF cephalexin [Keflex] 500 mg capsule 500 mg PO Q8H Qty: 21 0RF Referrals: Amos Lunsford [Primary Care Provider] - Stand Alone Forms: Patient Portal/API/Survey ED Sign-out <Cuauhtemoc Fong MD - Last Filed: 11/15/24 22:03> [facility]: I was immediately available in the department for consultation. This documentation has been reviewed and I agree with assessment and plan. Supervised by Cuauhtemoc Fong MD
--- NOTE | 2024-11-15 13:16 | DI.CT.S_ITS ---
PROCEDURE: CT CHEST ABD PEL W CON INDICATIONS: Rib, RUQ injury TECHNIQUE: After the administration of intravenous contrast, 5 mm thick sections acquired from the lung apices to the symphysis. 2.5 mm thick coronal and sagittal reformats were acquired. Additional 7 mm thick coronal maximum intensity projection (MIP) reformats acquired through the lungs. Optional 10-minute delayed imaging may be performed from the kidneys to the bladder. For radiation dose reduction, the following was used: automated exposure control, adjustment of mA and/or kV according to patient size. COMPARISON: [facility], CR, XR RIBS RT MIN 3V W CXR 1V, 11/15/2024, 11:22. [facility], CT, CT ANGIO CHEST PE PROTOCOL, 06/27/2018, 0:43. FINDINGS: Image quality: Diagnostic. CHEST: Lower Neck: No enlarged lymph nodes. Thyroid: No thyroid nodules which require sonographic evaluation. Axillae: No enlarged lymph nodes. Chest Wall: No subcutaneous gas. Lungs and Pleura: No pulmonary contusions or lacerations. No acute airspace opacities. No pneumothorax or hemothorax. Mediastinum: No mediastinal hematomas. Heart size is normal. No pericardial effusion. Thoracic aorta and pulmonary arteries demonstrate normal size and enhancement. No mediastinal or hilar adenopathy. Esophagus is normal in caliber. No hiatal hernia. ABDOMEN: Liver: No lacerations. Steatosis. Gallbladder: No radiopaque gallstones or wall thickening. Biliary ducts: No biliary dilation. Pancreas: Homogenous enhancement. Spleen: Homogenous enhancement without laceration or hematoma. Adrenal Glands: Symmetric enhancement. Kidneys and Ureters: Symmetric enhancement. No hydronephrosis. No solid mass. No complex renal cystic lesion which requires follow up. Nonobstructing calcification. Stomach and Bowel: Normal colonic caliber, without significant wall thickening. Colonic diverticula without inflammatory change. Peritoneum: No abnormal intraperitoneal fluid. No free air. Ventral Wall: No hernia. Abdominal Nodes: No retroperitoneal or mesenteric adenopathy by size criteria. Vessels: Aorta and inferior vena cava are normal in size. PELVIS: Pelvic Organs: Unremarkable. Bladder: Normal thickness. Pelvic Nodes: No enlarged lymph nodes. Miscellaneous: N bilateral inguinal hernias are seen. Bones: Pelvic ring and hip joints appear intact. No displaced rib fractures. IMPRESSION: No evidence of traumatic injury to the chest, abdomen or pelvis. Dictated by: Tana Jolley M.D. on 11/15/2024 at 14:52 Approved by: Tana Jolley M.D. on 11/15/2024 at 14:55
[2024-11-15 13:38] LABS: Add Manual Diff / Slide Review NO; Basophils Absolute Auto 0 /uL (0-100); Basophils Percent Auto 0.5 % (0-2); Eosinophils Absolute Auto 200 /uL (0-450); Eosinophils Percent Auto 2.7 % (2-4); Hematocrit 46.5 % (41-53); Hemoglobin 15.7 g/dL (13.5-17.5); Lymphocytes Absolute Auto 1400 /uL (1100-4500); Lymphocytes Percent Auto 22.3 % (25-40); Mean Corpuscular HGB Conc 33.8 % (30-36); Mean Corpuscular Hemoglobin 32.5 PG (26-34); Monocytes Absolute Auto 500 /uL (0-900); Monocytes Percent Auto 7.4 % (3-14); Neutrophils Absolute Auto 4300 /uL (1500-7000); Neutrophils Percent Auto 67.1 % (50-75); Platelet Count 293 X10^3/uL (150-400); Red Blood Cell Count 4.84 X10^6/uL (4.5-5.9); Red Cell Distribution Width 12.9 % (11.6-14.8); White Blood Cell Count 6.4 X10^3/uL (4.5-11.0)
[2024-11-15 13:46] LABS: Alanine Aminotransferase 35 IU/L (<50); Albumin 4.7 g/dL (3.5-5.0); Albumin Globulin Ratio 1.5 (1.0-2.8); Alkaline Phosphatase 78 U/L (38-126); Aspartate Aminotransferase 32 IU/L (17-59); BUN Creatinine Ratio 13.3 (6-22); Bilirubin Total 0.5 mg/dL (0.2-1.3); Blood Urea Nitrogen 10 mg/dL (9-20); Calcium 9.1 mg/dL (8.4-10.2); Carbon Dioxide 24 mmol/L (22-32); Chloride 103 mmol/L (98-107); Estimated Glomerular Filt Rate > 60 mL/min (>60); Globulin 3.2 g/dL (1.7-4.1); Glucose 301 mg/dL (70-100); HEMOLYSIS 15 (0-50); Lipase 58 U/L (23-300); Potassium 4.2 mmol/L (3.4-5.1); Prothrombin Time 11.1 SECONDS (9.4-12.5); Sodium 135 mmol/L (137-145); Total Protein 7.9 g/dL (6.3-8.2)
[2024-11-15 13:48] LABS: PTT Partial Thromboplastin Tim 37 SECONDS (25.1-36.5)
[2024-11-15 15:20] VITALS: BP 128/77; PULSE 54; RESP 16; O2SAT 97
== END 2024-11-15 15:28 | disposition home or self-care (01) ==
PROVIDERS: Emergency Provider Student in an Organized Health Care Education/Training Program; PCP Family Medicine
DX: S29.8XXA Other specified injuries of thorax, initial encounter (principal); S21.101A Unspecified open wound of right front wall of thorax without penetration into thoracic cavity, initial encounter; E11.9 Type 2 diabetes mellitus without complications; W11.XXXA Fall on and from ladder, initial encounter; Y93.89 Activity, other specified; Y92.512 Supermarket, store or market as the place of occurrence of the external cause; Y99.0 Civilian activity done for income or pay; Z86.711 Personal history of pulmonary embolism
CPT/HCPCS: 36415; 71101; 71260; 74177; 80053; 83690; 85025; 85610; 85730; 99283; 99285; Q9967

== ENCOUNTER 2025-07-19 22:00 | Emergency (ER) | payer OTHER, SELFPAY ==
[2025-07-19 22:09] VITALS: BP 162/79; PULSE 50; RESP 18; TEMP 36.7; O2SAT 98; BMI 34.0
--- NOTE | 2025-07-19 22:22 | DI.CT.S_ITS ---
PROCEDURE: CT KIDNEY URETER BLADDER (KUB) INDICATIONS: known kidney stone/flank pain/blood in urine TECHNIQUE: Axial sections were acquired from the lung bases to the pubic symphysis. Coronal and sagittal reformats were performed. For radiation dose reduction, the following was used: automated exposure control, adjustment of mA and/or kV according to patient size. COMPARISON: [facility], CT, CT CHEST ABD PEL W CON, 11/15/2024, 13:23. FINDINGS: Image quality: Diagnostic. Lower Chest: Right basilar atelectasis. Left lower lobe pulmonary nodule measuring 4 mm (12/25). URINARY: Right Kidney: No stones or hydronephrosis. Right Ureter: No hydroureter. Left Kidney: Mild hydronephrosis with struck ting stone measuring 1 cm at the ureteropelvic junction. Left Ureter: No hydroureter. Bladder: Press, limiting evaluation.. No stones. ABDOMEN: Liver: No contour-deforming solid mass. Hepatic steatosis. Gallbladder: No radiopaque gallstones or wall thickening. Biliary ducts: No biliary dilation. Pancreas: No ductal dilation. Spleen: Size is within normal limits. Adrenal Glands: No adrenal nodules. Stomach and Bowel: Normal colonic caliber, without significant wall thickening. Diverticulosis without evidence of acute diverticulitis. Normal appendix. Peritoneum: No abnormal intraperitoneal fluid. No free air. Ventral Wall: No hernia. Abdominal Nodes: No enlarged retroperitoneal or mesenteric lymph nodes. Vessels: Aorta and inferior vena cava are normal in size. Atherosclerotic vascular calcifications. PELVIS: Pelvic Organs: Unremarkable. Pelvic Nodes: Unremarkable. Miscellaneous: Small right greater than left fat containing inguinal hernias are seen. Bones: Degenerative changes of the spine. IMPRESSION: 1. Obstructing 1 cm stone at the left ureteropelvic junction resulting in mild hydronephrosis. 2. Mild hepatic steatosis. 3. Diverticulosis without evidence of acute diverticulitis. Dictated by: Erasmo Calderon M.D. on 07/19/2025 at 23:26 Approved by: Erasmo Calderon M.D. on 07/19/2025 at 23:30
[2025-07-19] MEDS: LACTATED RINGERS 1,000 ML 1000 ML IV (22:29)
[2025-07-19] MEDS: KETOROLAC 30 MG/ML VIAL 15 MG IV (22:30)
[2025-07-19 22:36] LABS: Culture Indicated Urine Cult Not Indicated
[2025-07-20 00:25] LABS: Add Manual Diff / Slide Review NO; Hematocrit 44.4 % (41-53); Hemoglobin 15.0 g/dL (13.5-17.5); Lymphocytes Absolute Auto 1900 /uL (1100-4500); Mean Corpuscular HGB Conc 33.8 % (30-36); Mean Corpuscular Hemoglobin 32.4 PG (26-34); Mean Corpuscular Volume 95.8 fL (80-100); Platelet Count 330 X10^3/uL (150-400)
[2025-07-20 00:30] LABS: Blood Urea Nitrogen 12 mg/dL (9-20); Calcium 9.3 mg/dL (8.4-10.2); Carbon Dioxide 26 mmol/L (22-32); Chloride 104 mmol/L (98-107); Estimated Glomerular Filt Rate > 60 mL/min (>60); Glucose 242 mg/dL (70-99); HEMOLYSIS 28 (0-50); Potassium 4.4 mmol/L (3.4-5.1); Sodium 137 mmol/L (137-145)
--- NOTE | 2025-07-20 01:26 | ED.BACK ---
HPI - Back Pain/Injury General Chief Complaint: Back Pain/Injury Stated Complaint: PAIN IN BACK TO GROIN, THROWN UP X2 Time Seen by Provider: 07/20/25 00:19 Source: patient Mode of arrival: Family Vehicle Limitations: no limitations History of Present Illness HPI Narrative: 59-year-old male with a history of pulmonary embolism on Xarelto, diabetes on metformin and Trulicity. Patient presents with complaint of sudden onset of flank pain in the left side. He states it does radiate a little bit towards the front. Has not had similar in the past. No fevers or chills. He states he threw up twice this evening. Denies any diarrhea or constipation, denies any dysuria urgency frequency or hematuria. States that has feeling somewhat improved after dose of Toradol but still uncomfortable. Patient states he had a prior surgery for a large cyst on the top of his kidney and had his adrenal gland removed on the left side remotely. Quit tobacco in 2017. No alcohol for the past 6 months. Denies any recreational drugs. He is accompanied by his . Related Data Home Medications ?Medication ?Instructions ?Recorded ?Confirmed acetaminophen 325 mg rectal ##0 11/05/17 suppository (Acephen) Previous Rx's ?Medication ?Instructions ?Recorded hydrocodone 5 mg-acetaminophen 325 1 tab PO Q6HP PRN #10 tabs 11/06/17 mg tablet ([place]) rivaroxaban 15 mg tablet (Xarelto) 15 mg PO BID #42 tabs 06/27/18 tramadol 50 mg tablet 50 mg PO Q6H PRN pain #14 tabs 06/27/18 cephalexin 500 mg capsule (Keflex) 500 mg PO Q8H #21 caps 01/03/20 oxycodone 5 mg tablet 5 mg PO Q6H PRN pain #14 tabs 07/20/25 tamsulosin 0.4 mg capsule (Flomax) 0.4 mg PO DAILY #7 caps 07/20/25 Allergies Allergy/AdvReac Type Severity Reaction Status Date / Time No Known Drug Allergies Allergy Verified 01/03/20 09:46 Review of Systems Review of Systems ROS Unobtainable: All systems reviewed & are unremarkable except as noted in HPI and below Patient History Medical History (Updated 07/20/25 @ 01:29 by Christy Reynoso DO) Pulmonary embolism Social History Smoking Status: Never smoker Smoking Status: Never smoker alcohol intake frequency: 0-2 drinks per day Exam Narrative Exam Narrative: GENERAL: Alert and oriented x three, male in moderate distress HEENT: Head normocephalic, atraumatic, EOMI, pupils reactive, face symmetric, moist mucous membranes NECK: Supple, full range of motion CARDIOVASCULAR: Regular rate and rhythm without murmurs, rubs or gallops. RESPIRATORY: Breath sounds equal bilaterally, no wheezes rales or rhonchi. ABDOMEN: Soft, nontender. Normoactive bowel sounds all 4 quadrants. No guarding or rebound, rigidity, no mass : No CVA tenderness EXTREMITIES: Normal range of motion, no clubbing or edema. Neurovascularly intact NEUROLOGICAL: Cranial nerves II through XII grossly intact. Moving all extremities SKIN: Warm, dry, no petechiae, no rashes or lesions. Initial Vital Signs Initial Vital Signs: Vital Signs Temperature 98.1 F 07/19/25 22:09 Pulse Rate 50 L 07/19/25 22:09 Respiratory Rate 18 07/19/25 22:09 Blood Pressure 162/79 H 07/19/25 22:09 Pulse Oximetry 98 07/19/25 22:09 Oxygen Delivery Method Room Air 07/19/25 22:09 Course Orders Ordered: ED Orders 07/19/25 22:15 Urine Microscopic Stat 07/19/25 22:22 CT kidney ureter bladder (KUB) Stat 07/20/25 00:19 BMP [Basic Metabolic Panel] Stat CBC Auto Diff [Complete Blood Count AUTO DIFF] Stat Discontinued Medications Lactated Ringer's (Lactated Ringers) 1,000 mls @ 1,000 mls/hr IV BOLUS ONE Stop: 07/19/25 23:21 Last Infusion: 07/19/25 23:02 Dose: Infused Documented By: Admin: 07/19/25 22:29 Dose: 1,000 mls/hr Documented By: ADI Ketorolac Tromethamine (Ketorolac 30 Mg/Ml Vial) 15 mg IV NOW ONE Stop: 07/19/25 22:23 Last Admin: 07/19/25 22:30 Dose: 15 mg Documented By: ADI Morphine Sulfate (Morphine 4 Mg/Ml Inj) 4 mg IV NOW ONE Stop: 07/20/25 01:27 Last Admin: 10/15/25 01:49 Dose: 4 mg Documented By: SHREE Ondansetron HCl (Ondansetron 4 Mg/2 Ml Inj) 4 mg IV NOW PRN PRN Reason: Nausea And Vomiting Ondansetron HCl (Ondansetron 4 Mg Odt) 4 mg PO NOW PRN PRN Reason: Nausea And Vomiting Ondansetron HCl (Ondansetron 4 Mg Odt Prepack) 1 bottle MISC DIRECTED ONE Stop: 07/20/25 01:47 Last Admin: 07/20/25 02:02 Dose: 1 bottle Documented By: SHREE Oxycodone/Acetaminophen (Oxycodone/Apap 5/325 Prepack) 1 bottle MISC DIRECTED ONE Stop: 07/20/25 01:43 Last Admin: 07/20/25 02:02 Dose: 1 bottle Documented By: SHREE Vital Signs Vital signs: Vital Signs - 8 hr 07/19/25 22:09 07/20/25 01:53 07/20/25 01:53 Temperature 98.1 F Pulse Rate 50 L 92 H Respiratory Rate 18 Blood Pressure 162/79 H 143/83 H Pulse Oximetry 98 97 Oxygen Delivery Method Room Air Room Air 07/20/25 02:00 Temperature Pulse Rate 88 Respiratory Rate Blood Pressure Pulse Oximetry 96 Oxygen Delivery Method MDM - Back Pain/Injury Lab Data 07/19/25 22:21 07/19/25 22:21 Labs: Lab Results 07/19/25 07/19/25 Range/Units 22:15 22:21 WBC 8.3 (4.5-11.0) X10^3/uL RBC 4.64 (4.5-5.9) X10^6/uL Hgb 15.0 (13.5-17.5) g/dL Hct 44.4 (41-53) % MCV 95.8 (80-100) fL MCH 32.4 (26-34) PG MCHC 33.8 (30-36) % RDW 12.9 (11.6-14.8) % Plt Count 330 (150-400) X10^3/uL Neut % (Auto) 63.5 (50-75) % Lymph % (Auto) 23.3 L (25-40) % Collin % (Auto) 8.0 (3-14) % Eos % (Auto) 4.0 (2-4) % Baso % (Auto) 1.2 (0-2) % Neut # (Auto) 5300 (2424-6714) /uL Lymph # (Auto) 1900 (8924-5347) /uL Collin # (Auto) 700 (0-900) /uL Eos # (Auto) 300 (0-450) /uL Baso # (Auto) 100 (0-100) /uL Sodium 137 (137-145) mmol/L Potassium 4.4 (3.4-5.1) mmol/L Chloride 104 (98-107) mmol/L Carbon Dioxide 26 (22-32) mmol/L BUN 12 (9-20) mg/dL Creatinine 0.90 (0.66-1.25) mg/dL Estimated GFR > 60 (>60) mL/min BUN/Creatinine Ratio 13.3 (6-22) Glucose 242 H (70-99) mg/dL Calcium 9.3 (8.4-10.2) mg/dL Urine RBC 30-100/hpf H (0-5/HPF) Urine WBC 1-5/hpf (0-5/HPF) Ur Squamous Epith Cells 0-1 /hpf (0-5/HPF) Calcium Oxalate Crystal Occasional H Urine Bacteria Few (2-10) H (None) Urine Mucus 4+ H (Negative) Ur Culture Indicated? Cult not indicated Vol Urine Centrifuged 10ml (spun) Urine Dip Bedside Urine Glucose 1000 mg/dl Bedside Urine Bilirubin - Negative Bedside Urine Ketone +/- 5 Urine Specific [place] 1.030 Bedside Urine Occult Blood +++ Bedside Urine pH 5.5 Bedside Urine Protein + 30 Bedside Urine Urobilinogen - Negative Bedside Urine Nitrite - Negative Bedside Urine Leukocytes - Negative Esterase MDM Narrative Medical decision making narrative: CT shows obstructing 1 cm stone in the left ureteropelvic junction resulting in mild hydronephrosis, mild hepatic steatosis, diverticulosis without evidence of diverticulitis. Labs show normal white count, hemoglobin and platelets, chemistries are normal BUN creatinine is normal glucose is 242. Urine negative for nitrates or leuks. Positive for blood. Positive for glucose. Shows 30-100 RBCs 1-5 white cells 1 squamous occasional calcium oxalate crystals few bacteria. Patient received L bolus of fluids and Toradol. Spoke with the Urology, Dr. Domingo, discussed patient has a 1 cm stone normal labs, hematuria, patient's pain is fairly well controlled here in the department. Discussed with the patient option to return home and follow up outpatient versus stay and go to the OR this morning. Patient was agreeable to either option if patient is comfortable can follow up outpatient. Okay to give flomax. Discharge Plan Departure Patient Disposition: Home Clinical Impression: Kidney stone on left side Instructions: DI for Kidney Stones Activity Restrictions/Additional Instructions: Follow up with Urology call the office this morning to set up follow up. I spoke with Dr. Domingo, he is happy to see you and get you set up with follow up for treatment of your stone. You can take Flomax daily. You can take acetaminophen up to a 1000 mg every 6 hours. You can take oxycodone 1-2 tablets every 6 hours as needed for pain. This medication can make you sleepy do not drive, perform hazardous activities or make any major decisions while taking it. This medication will make you constipated please take a stool softener once to twice daily until stools are soft and regular. Prescription sent to Please return for fevers, if you can talk control your pain, any persistent vomiting, inability or difficulty with urination or any other new or concerning changes. Prescriptions: New tamsulosin [Flomax] 0.4 mg capsule 0.4 mg PO DAILY Qty: 7 0RF oxycodone 5 mg tablet 5 mg PO Q6H PRN (Reason: pain) Qty: 14 0RF No Action acetaminophen [Acephen] 325 MG suppository Qty: 0 hydrocodone-acetaminophen [[place]] 5 MG/325 MG tablet 1 tab PO Q6HP PRNQty: 10 0RF rivaroxaban [Xarelto] 15 mg tablet 15 mg PO BID Qty: 42 0RF Rx Instructions: for 21 days tramadol 50 mg tablet 50 mg PO Q6H PRN (Reason: pain) Qty: 14 0RF cephalexin [Keflex] 500 mg capsule 500 mg PO Q8H Qty: 21 0RF Referrals: Raf Domingo DO [Physician, Urology] Amos Lunsford [Primary Care Provider, Medical] Stand Alone Forms: Patient Portal/API
[2025-07-20] MEDS: MORPHINE 4 MG/ML INJ IV (01:49)
[2025-07-20 01:53] VITALS: BP 143/83; PULSE 92; O2SAT 97
[2025-07-20 02:00] VITALS: PULSE 88; O2SAT 96
[2025-07-20] MEDS: ONDANSETRON 4 MG ODT PREPACK 1 BOTTLE MISC (02:02)
== END 2025-07-20 02:13 | disposition home or self-care (01) ==
PROVIDERS: Family Medicine; Emergency Provider Emergency Medicine; PCP Family Medicine
DX: N20.0 Calculus of kidney (principal); Z86.711 Personal history of pulmonary embolism; Z79.01 Long term (current) use of anticoagulants; Z87.891 Personal history of nicotine dependence
CPT/HCPCS: 36415; 74176; 80048; 81003; 81015; 85025; 96361; 96374; 96375; 99284; J1885; J2272; J7120